=== PATIENT | male | born 1950 | race African-American/Black ===

== ENCOUNTER 2025-01-21 10:13 | Emergency (ER) | payer OTHER ==
[~2025-01-21 10:13] MED LIST: Iopamidol 370 76% 100 ML VIAL ONE
[2025-01-21 12:16] LABS: #Basophils 0.1 thou/uL (0.0-0.2); #Eosinophils 0.0 thou/uL (0.0-0.7); #Lymphocytes 0.6 thou/uL (1.20-3.40); #Monocytes 0.8 thou/uL (0.11-0.59); #Neutrophils 6.4 thou/uL (1.40-6.50); %Basophils 0.7 % (0.0-1.0); %Eosinophils 0.0 % (0.0-10.0); %Lymphocytes 7.6 % (21.0-51.0); %Monocytes 10.0 % (0.0-10.0); %Neutrophils 81.7 % (42.0-75.0); Hematocrit 30.6 % (42.0-52.0); Hemoglobin 9.8 g/dL (14.0-18.0); Mean Corpuscular Hemoglobin 28.4 pg (27.0-31.0); Mean Corpuscular Volume 88.2 fl (78.0-98.0); Platelet Count 345 10x3/uL (130-400); Red Blood Cell (RBC) Count 3.47 mill/uL (4.70-6.10); White Blood Cell (WBC) Count 7.9 10x3/uL (4.8-10.8)
[2025-01-21 12:30] LABS: ALT (SGPT) 14 U/L (Less than 45); AST (SGOT) 48 U/L (11-34); Albumin 3.8 g/dL (3.1-4.5); Alkaline Phosphatase 86 U/L (40-110); Anion Gap 16 mmol/L (10-20); BUN (Urea Nitrogen) 28 mg/dL (8.4-25.7); Bilirubin, Total 0.4 mg/dL (0.3-1.2); Calc. Creatinine Clearance 0 mL/min (70-130); Carbon Dioxide 29 mmol/L (23-31); Chloride 98 mmol/L (98-107); Globulin 3.8 g/dL (2.4-3.5); Glucose 122 mg/dL (83-110); Magnesium 2.7 mg/dL (1.6-2.6); Potassium 4.0 mmol/L (3.5-5.1); Sodium 139 mmol/L (136-145)
[2025-01-21 12:32] LABS: Troponin I 0.133 ng/mL (< 0.028)
[2025-01-21 12:42] LABS: Calcium 13.2 mg/dL (7.8-10.44)
[2025-01-21 14:59] LABS: Glucose, Urine (Dipstick) Negative (Negative); Leukocyte Negative (Negative); Protein, Urine (Dipstick) Negative (Neg-Trace); Specific Gravity, Urine 1.010 (1.005-1.030)
[2025-01-21 15:10] LABS: CAUTI Indications for Culture Pelvic or flank pain; RBC/HPF 0-3 HPF (0-3); WBC/HPF 0-3 HPF (0-3)
[2025-01-21 15:12] LABS: Bacteria/HPF 1+ HPF (None Seen)
[2025-01-21 15:13] LABS: Oval Fat Bodies/HPF Rare HPF (None Seen)
[2025-01-21 15:15] LABS: Urine Culture Reflex No No
== END 2025-01-21 18:59 | disposition short-term general hospital (02) ==
LOC: NAV ERS 10:13
DX: R91.8 Other nonspecific abnormal finding of lung field (principal); J91.0 Malignant pleural effusion; C79.9 Secondary malignant neoplasm of unspecified site; R79.89 Other specified abnormal findings of blood chemistry; I50.9 Heart failure, unspecified; I25.10 Atherosclerotic heart disease of native coronary artery without angina pectoris; N18.9 Chronic kidney disease, unspecified; E11.22 Type 2 diabetes mellitus with diabetic chronic kidney disease; E11.40 Type 2 diabetes mellitus with diabetic neuropathy, unspecified; Z86.718 Personal history of other venous thrombosis and embolism; Z95.5 Presence of coronary angioplasty implant and graft
CPT/HCPCS: 36415; 71250; 74177; 80053; 81001; 83735; 83880; 84443; 84484; 85025; 93005; J7030; Q9967